=== PATIENT | female | born 1990 | race Caucasian/White ===

== ENCOUNTER 2020-12-29 10:52 | Emergency (ER) | payer OTHER ==
[2020-12-29] MEDS ORDERED: PREDNISONE20 MG PO (13:31)
== END 2020-12-29 14:25 | disposition home or self-care (01) ==
LOC: ER1 10:52
DX: J06.9 Acute upper respiratory infection, unspecified (principal); Z90.49 Acquired absence of other specified parts of digestive tract; Z88.2 Allergy status to sulfonamides; Z88.0 Allergy status to penicillin; Z79.899 Other long term (current) drug therapy; F17.200 Nicotine dependence, unspecified, uncomplicated; Z20.822 Contact with and (suspected) exposure to COVID-19
CPT/HCPCS: 71045; 94664; 94760; 99284; U0002

== ENCOUNTER 2021-03-14 10:02 | Emergency (ER) | payer OTHER ==
[~2021-03-14 10:02] MED LIST: PREDNISONE20 MG PO
[2021-03-14 10:39] LABS: RED BLOOD COUNT 4.69 M/UL (4.00-5.10); WHITE BLOOD COUNT 7.1 K/UL (4.5-11.0)
[2021-03-14 11:05] LABS: BUN/CREATININE RATIO 15 (0-10)
== END 2021-03-14 16:25 | disposition home or self-care (01) ==
LOC: ER1 10:02
PROVIDERS: Nurse Practitioner
DX: N93.9 Abnormal uterine and vaginal bleeding, unspecified (principal); Z90.49 Acquired absence of other specified parts of digestive tract; F17.210 Nicotine dependence, cigarettes, uncomplicated; Z88.2 Allergy status to sulfonamides; Z88.0 Allergy status to penicillin; K21.9 Gastro-esophageal reflux disease without esophagitis
CPT/HCPCS: 76830; 80053; 81001; 84702; 84703; 85025; 87086; 99284

== ENCOUNTER → 2021-06-27 | Outpatient (CLI) | payer OTHER | LOC: KOH-I 14:43 | DX: R06.02 Shortness of breath (principal) | CPT/HCPCS: 71046 ==

== ENCOUNTER 2021-12-29 18:18 | Emergency (ER) | payer OTHER ==
[2021-12-29 18:48] LABS: HEMOGLOBIN 13.8 gm/dl (12.3-15.3); RED BLOOD COUNT 4.64 M/UL (4.00-5.10); WHITE BLOOD COUNT 5.5 K/UL (4.5-11.0)
[2021-12-29 19:14] LABS: BUN/CREATININE RATIO 11 (0-10)
[2021-12-29] MEDS ORDERED: ZOFRAN 4 MG TAB4 MG PO (20:26)
== END 2021-12-29 20:30 | disposition home or self-care (01) ==
LOC: ER1 18:18
PROVIDERS: Physician Assistant
DX: U07.1 COVID-19 (principal); Z88.0 Allergy status to penicillin; Z88.1 Allergy status to other antibiotic agents
CPT/HCPCS: 71045; 80053; 81001; 85025; 87081; 87880; 99284; U0002